=== PATIENT | male | born 1935 | race Caucasian/White ===

== ENCOUNTER 2018-04-25 08:03 | Inpatient (IN) | payer MEDICARE, OTHER ==
[2018-04-25] MEDS: IBUPROFEN 800 MG TAB PEG (08:44)
[2018-04-25] MEDS: ACETAMINOPHEN 650 MG SUPP PR (08:44)
[2018-04-25] MEDS: SODIUM CHLORIDE 0.9% 1L BAG IV* (08:45)
[2018-04-25] MEDS: PIPER-TAZO 3.375 GM IV (PMX) 100 ML IVPB ×3 (08:45→22:46)
[2018-04-25 08:47] LABS: WHITE BLOOD COUNT 18.6 10^3/ul (4.8-10.8)
[2018-04-25 08:47] LABS: ADD MAN DIFF? NO; BASOPHIL # 0.1 10^3/ul (0.0-0.1); BASOPHILS % 0.4 % (0.0-2.0); EOSINOPHILS % 0.2 % (0.0-7.0); HEMOGLOBIN 9.8 g/dl (14.0-18.0); LYMPHOCYTES # 1.6 10^3/ul (0.8-2.9); LYMPHOCYTES % 8.3 % (15.0-51.0); MEAN CORPUSCULAR HEMOGLOBIN 28.3 pg (29.0-33.0); MEAN CORPUSCULAR HGB CONC 30.6 g/dl (32.0-37.0); MEAN CORPUSCULAR VOLUME 92.5 fl (82.0-101.0); MEAN PLATELET VOLUME 11.2 fl (7.4-10.4); MONOCYTE # 1.1 10^3/ul (0.3-0.9); MONOCYTES % 5.9 % (0.0-11.0); NEUTROPHIL # 15.7 10^3/ul (1.6-7.5); NEUTROPHILS % 84.3 % (39.0-77.0); PLATELET COUNT 342 10^3/UL (140-415); RED BLOOD COUNT 3.46 10^6/ul (4.70-6.10); RED CELL DISTRIBUTION WIDTH 14.7 % (11.5-14.5)
[2018-04-25 09:02] LABS: AADO2 Arterial 127.8 mmHg (7.0-24.0); Allen Test ACCEPTAB; Arterial Base Excess 2.6 mmol/L (-3.0-3); Arterial Blood Gas Oxygen Sat 95.2 mmHG (95.0-100.0); Arterial COHb 0.3 % (0.0-3.0); Arterial Fraction of Oxyhgb 94.6 % (93.0-99.0); Arterial HCO3 26.4 mmol/L (22.0-26.0); Arterial MetHb 0.3 % (0.0-1.5); Arterial pCO2 37.5 mmhg (35-45); Blood Gas IEPAP 15/5; MODE MASK - BIPAP; Site Right Radial
[2018-04-25 09:08] LABS: ALANINE AMINOTRANSFERASE 24 IU/L (13-69); ALBUMIN 2.8 g/dl (3.3-4.9); ALBUMIN/GLOBULIN RATIO 0.82; ALKALINE PHOSPHATASE 99 IU/L (42-121); AMYLASE 75 U/L (11-123); ANION GAP 7 (5-13); ASPARTATE AMINO TRANSFERASE 35 IU/L (15-46); BILIRUBIN,INDIRECT 0.2 mg/dl (0-1.1); BILIRUBIN,TOTAL 0.2 mg/dl (0.2-1.3); BLOOD UREA NITROGEN 23 mg/dl (7-20); CALCIUM 8.8 mg/dl (8.4-10.2); CARBON DIOXIDE 32 mmol/L (21-31); CHLORIDE 106 mmol/L (97-110); CREATININE 1.12 mg/dl (0.61-1.24); GLUCOSE 146 mg/dl (70-220); LIPASE 80 U/L (23-300); POTASSIUM 4.4 mmol/L (3.5-5.1); SODIUM 145 mmol/L (135-144); TOTAL PROTEIN 6.2 g/dl (6.1-8.1)
[2018-04-25 09:10] LABS: PARTIAL THROMBOPLASTIN TIME 35.1 Sec (23.0-35.0); PROTIME 15.3 Sec (11.9-14.9); PT RATIO 1.2
[2018-04-25 09:19] LABS: TROPONIN-I 0.055 ng/ml (0.000-0.120)
[2018-04-25 09:58] LABS: B-TYPE NATRIURETIC PEPTIDE 2940 PG/ML (0-450)
[2018-04-25] MEDS ORDERED: ACETAMINOPHEN 325 MG TAB PO (10:00)
[2018-04-25] MEDS ORDERED: ONDANSETRON 4 MG INJ IV (10:00)
[2018-04-25] MEDS: VANCOMYCIN 1 GM (PMX) 250 ML IVPB (10:01)
[2018-04-25] MEDS ORDERED: VANCOMYCIN IV PER PHARMACY XX (12:00)
[2018-04-25] MEDS ORDERED: NACL 0.9% 3 ML SYG IV (12:00)
[2018-04-25 14:12] LABS: LACTIC ACID 1.4 mmol/L (0.5-2.0)
[2018-04-25] MEDS: VANCOMYCIN 500 MG (PMX) 100 ML IVPB (15:32)
[2018-04-25] MEDS: ALBUTEROL 0.5% (NEB) 2.5 MG/0.5 ML AMP INH (15:34)
[2018-04-25] MEDS: IPRATROPIUM (NEB) 0.5 MG/2.5 ML AMP INH (15:34)
[2018-04-25 15:44] LABS: ADD UMIC NO; UR ASCORBIC ACID 40 mg/dL (NEGATIVE); UR BILIRUBIN (Dip) NEGATIVE (NEGATIVE); UR BLOOD (Dip) NEGATIVE (NEGATIVE); UR CLARITY SLIGHTLY CLOUDY (CLEAR); UR COLOR YELLOW (YELLOW); UR GLUCOSE (Dip) NEGATIVE (NEGATIVE); UR KETONES (Dip) NEGATIVE (NEGATIVE); UR LEUKOCYTE ESTERASE (Dip) NEGATIVE Leu/ul (NEGATIVE); UR NITRITE (Dip) NEGATIVE (NEGATIVE); UR RBC 6 /HPF (0-5); UR SPECIFIC GRAVITY (Dip) 1.016 (1.003-1.030); UR TOTAL PROTEIN (Dip) NEGATIVE (NEGATIVE); UR UROBILINOGEN (Dip) NEGATIVE (NEGATIVE); UR WBC 1 /HPF (0-5)
[2018-04-25] MEDS: ATROPINE 1 MG/10 ML SYRINGE IV (16:33)
[2018-04-25] MEDS ORDERED: PENDING SANTYL ORDER FOR WOUND CARE XX (18:30)
[2018-04-25] MEDS: hydrALAzine 20 MG INJ IV (18:34)
[2018-04-25 19:53] LABS: TROPONIN-I 0.051 ng/ml (0.000-0.120)
[2018-04-25] MEDS: ALBUTEROL/IPRATROPIUM (NEB) 3 ML AMP HHN (21:46)
[2018-04-26 01:29] LABS: TROPONIN-I 0.051 ng/ml (0.000-0.120)
[2018-04-26 06:30] LABS: ADD MAN DIFF? NO
[2018-04-26] MEDS: PIPER-TAZO 3.375 GM IV (PMX) 100 ML IVPB ×3 (06:32→20:31)
[2018-04-26 06:42] LABS: BASOPHILS % 0.3 % (0.0-2.0); EOSINOPHILS # 0.1 10^3/ul (0.0-0.5); EOSINOPHILS % 0.9 % (0.0-7.0); HEMOGLOBIN 9.1 g/dl (14.0-18.0); LYMPHOCYTES % 16.5 % (15.0-51.0); MEAN CORPUSCULAR HEMOGLOBIN 28.1 pg (29.0-33.0); MEAN CORPUSCULAR HGB CONC 30.3 g/dl (32.0-37.0); MEAN CORPUSCULAR VOLUME 92.6 fl (82.0-101.0); MEAN PLATELET VOLUME 11.2 fl (7.4-10.4); MONOCYTE # 0.7 10^3/ul (0.3-0.9); MONOCYTES % 5.8 % (0.0-11.0); NEUTROPHIL # 9.4 10^3/ul (1.6-7.5); NEUTROPHILS % 75.9 % (39.0-77.0); PLATELET COUNT 276 10^3/UL (140-415); RED BLOOD COUNT 3.24 10^6/ul (4.70-6.10)
[2018-04-26 06:42] LABS: WHITE BLOOD COUNT 12.4 10^3/ul (4.8-10.8)
[2018-04-26 06:55] LABS: CHOLESTEROL 60 mg/dl (100-200)
[2018-04-26 06:55] LABS: CHOL/HDL RATIO 3.1 RATIO; HDL CHOLESTEROL 19 mg/dl (31-75); LDL CHOLESTEROL,CALCULATED 26 mg/dl; TRIGLYCERIDES 74 mg/dl (0-149)
[2018-04-26 07:01] LABS: HEMOGLOBIN A1C 5.5 % (0-5.9)
[2018-04-26 07:39] LABS: ALANINE AMINOTRANSFERASE 28 IU/L (13-69); ALBUMIN 2.5 g/dl (3.3-4.9); ALKALINE PHOSPHATASE 75 IU/L (42-121); ANION GAP 5 (5-13); ASPARTATE AMINO TRANSFERASE 32 IU/L (15-46); BILIRUBIN,INDIRECT 0.3 mg/dl (0-1.1); BILIRUBIN,TOTAL 0.3 mg/dl (0.2-1.3); BLOOD UREA NITROGEN 23 mg/dl (7-20); CALCIUM 8.5 mg/dl (8.4-10.2); CARBON DIOXIDE 30 mmol/L (21-31); CHLORIDE 110 mmol/L (97-110); CREATININE 0.95 mg/dl (0.61-1.24); GLUCOSE 90 mg/dl (70-220); POTASSIUM 4.1 mmol/L (3.5-5.1); SODIUM 145 mmol/L (135-144); TOTAL PROTEIN 5.6 g/dl (6.1-8.1)
[2018-04-26 07:43] LABS: TROPONIN-I 0.055 ng/ml (0.000-0.120)
[2018-04-26] MEDS: PANTOPRAZOLE (EC) 40 MG TAB PO (09:17)
[2018-04-26] MEDS: ENOXAPARIN 30 MG/0.3 ML SYG SC (09:22)
[2018-04-26] MEDS: VANCOMYCIN HCL 1.25 GM in SOD CHLORIDE 0.9% 250 ML IVPB (14:29)
[2018-04-26] MEDS: FUROSEMIDE 40 MG INJ IV (19:15)
[2018-04-26] MEDS: BALSAM PERU/CASTOR OIL 60 GM TUBE TOP (20:31)
[2018-04-26] MEDS: ALBUTEROL/IPRATROPIUM (NEB) 3 ML AMP HHN (21:15)
[2018-04-27] MEDS: PIPER-TAZO 3.375 GM IV (PMX) 100 ML IVPB ×3 (05:52→22:02)
[2018-04-27 08:20] LABS: ADD MAN DIFF? NO
[2018-04-27 08:31] LABS: WHITE BLOOD COUNT 10.9 10^3/ul (4.8-10.8)
[2018-04-27 08:31] LABS: BASOPHILS % 0.4 % (0.0-2.0); EOSINOPHILS # 0.1 10^3/ul (0.0-0.5); EOSINOPHILS % 0.7 % (0.0-7.0); HEMATOCRIT 29.6 % (42.0-52.0); HEMOGLOBIN 8.9 g/dl (14.0-18.0); LYMPHOCYTES # 2.3 10^3/ul (0.8-2.9); LYMPHOCYTES % 21.4 % (15.0-51.0); MEAN CORPUSCULAR HEMOGLOBIN 27.7 pg (29.0-33.0); MEAN CORPUSCULAR HGB CONC 30.1 g/dl (32.0-37.0); MEAN CORPUSCULAR VOLUME 92.2 fl (82.0-101.0); MEAN PLATELET VOLUME 11.7 fl (7.4-10.4); MONOCYTE # 0.6 10^3/ul (0.3-0.9); MONOCYTES % 5.6 % (0.0-11.0); NEUTROPHIL # 7.8 10^3/ul (1.6-7.5); NEUTROPHILS % 71.5 % (39.0-77.0); PLATELET COUNT 272 10^3/UL (140-415); RED BLOOD COUNT 3.21 10^6/ul (4.70-6.10); RED CELL DISTRIBUTION WIDTH 14.9 % (11.5-14.5)
[2018-04-27 08:42] LABS: ANION GAP 10 (5-13); BLOOD UREA NITROGEN 21 mg/dl (7-20); CALCIUM 8.6 mg/dl (8.4-10.2); CARBON DIOXIDE 29 mmol/L (21-31); CHLORIDE 109 mmol/L (97-110); CREATININE 0.99 mg/dl (0.61-1.24); GLUCOSE 76 mg/dl (70-220); POTASSIUM 3.6 mmol/L (3.5-5.1); SODIUM 148 mmol/L (135-144)
[2018-04-27 08:52] LABS: TROPONIN-I 0.079 ng/ml (0.000-0.120)
[2018-04-27] MEDS: PANTOPRAZOLE (EC) 40 MG TAB PO (08:54)
[2018-04-27] MEDS: FUROSEMIDE 40 MG INJ IV (08:55)
[2018-04-27] MEDS: ENOXAPARIN 30 MG/0.3 ML SYG SC (08:58)
[2018-04-27] MEDS: BALSAM PERU/CASTOR OIL 60 GM TUBE TOP (09:00)
[2018-04-27] MEDS: hydrALAzine 20 MG INJ IV (12:16)
[2018-04-27] MEDS: VANCOMYCIN HCL 1.25 GM in SOD CHLORIDE 0.9% 250 ML IVPB (14:08)
[2018-04-28] MEDS: BALSAM PERU/CASTOR OIL 60 GM TUBE TOP ×3 (00:43→21:00)
[2018-04-28] MEDS: PIPER-TAZO 3.375 GM IV (PMX) 100 ML IVPB ×3 (05:33→20:59)
[2018-04-28] MEDS: hydrALAzine 20 MG INJ IV (05:40)
[2018-04-28 07:24] LABS: ADD MAN DIFF? NO
[2018-04-28 07:27] LABS: BASOPHILS % 0.3 % (0.0-2.0); EOSINOPHILS # 0.1 10^3/ul (0.0-0.5); EOSINOPHILS % 0.5 % (0.0-7.0); HEMATOCRIT 32.7 % (42.0-52.0); LYMPHOCYTES # 3.2 10^3/ul (0.8-2.9); LYMPHOCYTES % 20.4 % (15.0-51.0); MEAN CORPUSCULAR HEMOGLOBIN 28.1 pg (29.0-33.0); MEAN CORPUSCULAR HGB CONC 30.6 g/dl (32.0-37.0); MEAN CORPUSCULAR VOLUME 91.9 fl (82.0-101.0); MEAN PLATELET VOLUME 11.3 fl (7.4-10.4); MONOCYTE # 0.9 10^3/ul (0.3-0.9); MONOCYTES % 5.9 % (0.0-11.0); NEUTROPHIL # 11.4 10^3/ul (1.6-7.5); NEUTROPHILS % 71.8 % (39.0-77.0); PLATELET COUNT 313 10^3/UL (140-415); RED BLOOD COUNT 3.56 10^6/ul (4.70-6.10); RED CELL DISTRIBUTION WIDTH 14.8 % (11.5-14.5)
[2018-04-28 07:27] LABS: WHITE BLOOD COUNT 15.9 10^3/ul (4.8-10.8)
[2018-04-28 07:47] LABS: ANION GAP 7 (5-13); BLOOD UREA NITROGEN 29 mg/dl (7-20); CALCIUM 8.7 mg/dl (8.4-10.2); CARBON DIOXIDE 33 mmol/L (21-31); CHLORIDE 110 mmol/L (97-110); CREATININE 1.14 mg/dl (0.61-1.24); GLUCOSE 135 mg/dl (70-220); POTASSIUM 3.2 mmol/L (3.5-5.1); SODIUM 150 mmol/L (135-144)
[2018-04-28] MEDS: FUROSEMIDE 40 MG INJ IV (08:47)
[2018-04-28] MEDS: PANTOPRAZOLE (EC) 40 MG TAB PO (08:47)
[2018-04-28] MEDS: ENOXAPARIN 30 MG/0.3 ML SYG SC (09:06)
[2018-04-28 12:25] LABS: VANCOMYCIN,TROUGH 14.6 ug/ml (10.0-20.0)
[2018-04-28] MEDS: VANCOMYCIN HCL 1.25 GM in SOD CHLORIDE 0.9% 250 ML IVPB (12:36)
[2018-04-28] MEDS: POTASSIUM CHLORIDE (SR) 20 MEQ TAB PO (20:59)
== END 2018-04-28 23:20 | DRG 871 ==
LOC: E/R 08:03 → TEL 09:43
PROC: 5A09357 Assistance with Respiratory Ventilation, Less than 24 Consecutive Hours, Continuous Positive Airway Pressure (ICD-10-PCS; principal; 2018-04-25)
PROC: 3E0F7GC Introduction of Other Therapeutic Substance into Respiratory Tract, Via Natural or Artificial Opening (ICD-10-PCS; 2018-04-25)
DX: A41.9 Sepsis, unspecified organism (principal); J69.0 Pneumonitis due to inhalation of food and vomit; J96.01 Acute respiratory failure with hypoxia; E87.0 Hyperosmolality and hypernatremia; G93.40 Encephalopathy, unspecified; K22.2 Esophageal obstruction; Z93.1 Gastrostomy status; G30.9 Alzheimer's disease, unspecified; F02.80 Dementia in other diseases classified elsewhere, unspecified severity, without behavioral disturbance, psychotic disturbance, mood disturbance, and anxiety; R00.1 Bradycardia, unspecified; D64.9 Anemia, unspecified; R62.7 Adult failure to thrive; Z68.25 Body mass index [BMI] 25.0-25.9, adult; I25.10 Atherosclerotic heart disease of native coronary artery without angina pectoris; I10 Essential (primary) hypertension; N40.0 Benign prostatic hyperplasia without lower urinary tract symptoms; Z87.891 Personal history of nicotine dependence; B96.5 Pseudomonas (aeruginosa) (mallei) (pseudomallei) as the cause of diseases classified elsewhere
CPT/HCPCS: 36600; 71045; 80048; 80053; 80061; 80202; 81001; 81003; 82150; 82803; 83036; 83605; 83690; 83735; 83880; 84443; 84484; 85025; 85610; 85730; 87040; 87070; 87086; 87400; 89220; 92610; 93005; 93306; 94640; 94644; 94660; 94664; 96374; 97162; 99291-25

== ENCOUNTER 2018-05-11 13:29 | Day surgery (SDC) | payer OTHER, MEDICARE ==
[2018-05-11] MEDS ORDERED: PROPOFOL 20 ML (15:09)
[2018-05-11] MEDS ORDERED: LIDOCAINE 2% (SDV) 5 ML INJ (15:09)
[2018-05-11] MEDS ORDERED: ONDANSETRON 4 MG INJ IV (15:30)
[2018-05-11] MEDS ORDERED: FENTAnyl 50 MCG/ML VIAL (15:34)
[2018-05-11] MEDS ORDERED: ETOMIDATE 20 MG INJ (15:34)
[2018-05-11] MEDS ORDERED: LACTATED RINGER'S 500 ML IV (17:00)
== END 2018-05-11 16:36 | disposition home or self-care (01) ==
LOC: GIL 13:29
DX: K22.2 Esophageal obstruction (principal)
CPT/HCPCS: 43249